=== PATIENT | female | born 1990 | race Caucasian/White ===

== ENCOUNTER → 2022-09-16 15:25 | Outpatient (BNVA) | payer BC, SELFPAY | PROVIDERS: Family Provider Family Medicine; PCP Family Medicine; Referring Provider Family Medicine; Visit Provider Student in an Organized Health Care Education/Training Program | DX: G56.01 Carpal tunnel syndrome, right upper limb (principal); Z98.51 Tubal ligation status | CPT/HCPCS: 73130 ==

== ENCOUNTER 2022-10-11 06:13 | Day surgery (SDC) | payer BC, MEDICAID, SELFPAY ==
[2022-10-08 14:01] VITALS: BMI 31.4
[2022-10-11] VITALS (7 sets, daily range): BP systolic 86–97; BP diastolic 47–63; PULSE 55–63; RESP 12–18; TEMP 36.1–36.7; O2SAT 99–100
[2022-10-11] MEDS: sodium chloride 0.9% 1,000 ML 30 ML IV (06:43)
[2022-10-11] MEDS: ketorolac 30 mg/mL INJ IVP (06:47)
[2022-10-11] MEDS: acetaminophen 1,000 MG/100 ML PIGGYBACK 400 MG IV (06:47)
[2022-10-11 06:53] LABS: OR HCG Qualitative Urine Negative (Negative)
--- NOTE | 2022-10-11 06:54 | W.PM.OPSUD ---
Surgery/Procedure H&P Update DATE OF PROCEDURE: October 11, 2022 DATE H&P PERFORMED: 09/16/22 CHANGES TO PREVIOUS DOCUMENTATION: None. No change in HPI visit from 09/16/2022. Patient continues to have right carpal tunnel syndrome. She understands risk benefits complication alternatives of surgery elects proceed with surgical intervention all questions answered at this time. She did bring her previous nerve conduction study from an outside facility which demonstrated carpal tunnel syndrome on her nerve study to the right upper extremity PREOP DIAGNOSIS: Right Carpal Tunnel syndrome PRIMARY INDICATION FOR PROCEDURE: Right carpal tunnel syndrome PLANNED PROCEDURE: Operation Date: 10/11/22 08:05 Proposed Procedures p RIGHT CARPAL TUNNEL RELEASE 07400, G56.00,M79.641(Right) - John Corona DO
--- NOTE | 2022-10-11 07:36 | ANES.PREANE2 ---
Pre-Anesthetic Assessment Height/Weight: Height 1.63 m Weight 83.007 kg Temp Resp O2 Del Method 98.1 F 16 Room Air 10/11/22 06:30 10/11/22 06:30 10/11/22 06:30 Preop Diagnosis: Right Carpal Tunnel syndrome Operation Date: 10/11/22 08:05 Proposed Procedures p RIGHT CARPAL TUNNEL RELEASE 16385, G56.00,M79.641(Right) - John Corona DO Familial anesthetic complications: None Was Beta Kin taken within 24 hours: N/A Was Clonidine taken within 24 hours: N/A Last intake: Intake Last Liquid Date 10/10/22 Last Liquid Time 21:00 Last Solid Date 10/10/22 Last Solid Time 18:30 Social Tobacco and No alcohol 1 pack(s) per day Hx meth use Exam alert, oriented x 3, clear to auscultation bilaterally and regular rate & rhythm Airway Submandibular: within normal limits Cervical ROM: within normal limits Mallampati: Class II Dentition: full History/ROS No significant history except as noted and No significant complaints Pulmonary None reported CV/HEM None reported None reported Hepatic None reported GI None reported Metabolic None reported Musc/skel None reported Neuropsych Anxiety, Depression and Seizure (A few years ago, met with neurologist but no interventions. ) Anesthetic Plan ASA status: 2 Anesthesia: Anesthesia Evaluation, General and MAC Risk of > 500 ml blood loss (7ml/kg in children): No Medications/Allergies Home Medications Medication Instructions Recorded Confirmed Last Taken Type baclofen 5 mg tablet 10 mg PO BID 09/07/22 10/11/22 10/10/22 History buspirone 5 mg tablet 15 mg PO BID 09/07/22 10/11/22 10/10/22 History fluoxetine 10 mg capsule (Prozac) 20 mg PO DAILY #30 caps 09/07/22 10/11/22 10/10/22 Rx hydrocodone 5 mg-acetaminophen 325 1 tab PO Q6H PRN pain 5 days #20 10/11/22 Unknown Rx mg tablet tabs ondansetron 4 mg disintegrating 4 mg PO DAILY PRN nausea and 10/11/22 Unknown Rx tablet vomiting 3 days #9 tabs Allergies Allergy/AdvReac Type Severity Reaction Status Date / Time phentermine AdvReac racing Verified 10/08/22 14:04 heart rate Current Medications Generic Name Dose Route Start Last Admin Trade Name Freq PRN Reason Stop Dose Admin Sodium Chloride 1,000 mls @ 30 mls/hr 10/11/22 06:30 10/11/22 06:43 Sodium Chloride 0.9% IV 10/12/22 06:29 30 mls/hr .Q24H KADE Administration PFSH Anesthesia Medical History Psychiatric care Social History (Updated 09/16/22 @ 14:37 by Nadine Hill LPN) Smoking and tobacco status: current every day smoker Alcohol intake: never Female Reproductive History Date of last menstrual period: 09/26/22 Data Anesthesia Cardiac Studies: No Data to Display
[2022-10-11] MEDS: ceFAZolin 2,000 MG in sodium chloride 0.9% (plus) 50 ML 100 MG IV (07:58)
[2022-10-11] MEDS: lidocaine-epi 1% 20 mL INJ INJECTION (08:15)
[2022-10-11] MEDS: ROPivacaine 0.5% SDV 30 mL 150 MG INJECTION (08:15)
--- NOTE | 2022-10-11 08:42 | PM.OP2 ---
Brief Operative Note Date of procedure: 10/11/22 Pre-op diagnosis: Right carpal tunnel syndrome Post-op diagnosis: same Procedure Done: Right carpal tunnel release Surgeon: John Corona Estimated blood loss (mL): 3 Complications: None Post-op Plan: Patient taken to PACU in stable condition recovering well. Pain controlled. Will receive appropriate discharge instructions as well as pain medication postoperatively. We will follow-up in the orthopedic office in 2 weeks. Condition: stable Disposition: same day Coding Level of Care Code Acute Code for Saravanan Hernandez
--- NOTE | 2022-10-11 08:43 | P.OP_ITS ---
Operative Report Date of procedure: October 11, 2022 Pre-op diagnosis: Preop Diagnosis Right Carpal Tunnel syndrome Technology Resource Teacher: Candido Corona PA-C, PA-C was necessary for assistance in this case with appropriate skin and soft tissue retraction as well as protection of neurovascular structures as well as for assistance with closure. Procedure: Post-op diagnosis: Same Procedure done: 1. Right carpal tunnel release Surgeon: John Corona DO Anesthesia: MAC (Local) Estimated blood loss: [3?]mL Tourniquet time [ 7]minutes IV fluids: See anesthesia record Complications: None Findings: See operative report narrative Condition: stable Disposition: same day Brief History: Patient is a pleasant [?32 ]year-old [female] with right carpal tunnel syndrome.? Patient has been worked up in the outpatient setting findings and physical examination consistent with this.? Patient nerve conduction studies consistent with carpal tunnel syndrome.? We detailed out patient's risk benefits complication alternatives with surgical and nonsurgical treatment options. Through shared decision making, patient agrees to proceed with surgical intervention of the right carpal tunnel release .? Patient understands and agrees with current plan.? All questions answered.? Procedure: Patient seen and evaluated in the preoperative holding area.? Consent was reviewed and signed with patient.? Correct extremity was marked.? Patient was seen evaluated by the anesthesia department once cleared for surgery was brought back to the operative suite.? Patient was kept on [facility] in supine position all bony prominences were well-padded patient properly secured to the bed.? Right upper extremity was then placed onto an armboard.? A nonsterile tourniquet was applied to the RIght upper arm.? Patient underwent anesthesia per the anesthesia department.? Patient's Right upper extremity was then prepped and draped in standard orthopedic fashion.? Final timeout performed.? Patient received appropriate preoperative antibiotics. Under sterile aseptic technique patient received local anesthesia over the preplanned carpal tunnel incision site. Esmarch was used to exsanguinate the Right upper extremity and tourniquet was insufflated to 250 mmHg. A standard mini open Right carpal tunnel incision was made.? Starting distally at Thrasher's cardinal line in line with the fourth ray extending proximally distal to the wrist crease centered over the carpal tunnel.? Sharp scalpel incision was made through skin and subcutaneous tissue.? Self-retaining retractor was placed and the palmar fascia was identified.? This was then split longitudinally and direct visualization of the transverse carpal ligament was then made.? I then utilizing scalpel feathered through the transverse carpal ligament until I entered the floor of the transverse carpal tunnel ligament into the carpal tunnel.? Next I switched to dissection scissors and completed my release of the transverse carpal ligament distally with care to protect the recurrent motor branch.? I completely released into the palmar fat and until no entrapment was noted distally.? Care was made to protect the superficial palmar arch during my distal dissection.?? Next I utilized a nasal speculum placed on top of the transverse carpal ligament and utilize this to retract the subcutaneous fat and tissue and under direct loupe magnification was able to identify the transverse carpal ligament.? Next I then placed a [place] underneath the transverse carpal tunnel ligament to protect the contents of the carpal tunnel and subsequently utilizing dissection scissors under loupe magnification completely released the transverse carpal ligament proximally into the median antebrachial fascia.? Care was made to protect the palmar cutaneous branch by keeping my scissors curved ulnarly.? Once completely released, I then placed my [place] and had appropriate decompression of the carpal tunnel proximally as well as distally.? I then inspected the contents of the carpal tunnel which showed an hourglass shape of the median nerve showing its compression.? No masses were noted.? Tendons appeared healthy.? Wound was then thoroughly irrigated.? Tourniquet deflated.? Hemostasis satisfactory with bipolar electrocautery.? I then closed the incision with interrupted nylon stitches.? Xeroform 4 x 4's and a bulky soft dressing was applied.? Patient was then awakened from anesthesia and taken to PACU in stable condition.? Patient tolerated procedure without complications. Disposition: Patient taken to PACU in stable condition recovering well.? Dressing clean dry and intact.? Patient will receive appropriate discharge instructions as well as pain medication postoperatively.? Patient to follow-up with me in the office in 2 weeks.? They understand they may be weightbearing as tolerated to the right hand.? Patient should keep incision clean dry and intact.? Patient understands if any questions or concerns may contact the office.
--- NOTE | 2022-10-11 08:43 | PM.PACU ---
PACU note Narrative: Patient taken to PACU in stable condition dressing on in place clean dry intact of the right hand. Fingertips warm well-perfused brisk capillary refill less than 2 seconds. Patient is able to wiggle fingers decree sensation secondary to local anesthesia and median nerve paresthesias at baseline. Exam: awake Disposition: discharged
--- NOTE | 2022-10-11 16:58 | ANE.PACU2 ---
Inpatient post-anesthesia follow up: Airway intact: Yes Vital signs: Temperature 97.0 F Pulse Rate 56 Respiratory Rate 16 Blood Pressure 97/63 Pulse Oximetry 99 Oxygen Delivery Me thod Room Air Oxygen Flow Rate 5 Fraction of Inspir ed Oxygen Hydration adequate: Yes Nausea and vomiting: No Pain level: 2 Mental status: Baseline
== END 2022-10-11 09:40 | disposition home or self-care (01) ==
PROVIDERS: Anesthesiology; PCP Family Medicine; Visit Provider Student in an Organized Health Care Education/Training Program
PROC: (CPT 64721; principal; 2022-10-11 07:55)
DX: G56.01 Carpal tunnel syndrome, right upper limb (principal); F17.210 Nicotine dependence, cigarettes, uncomplicated; Z79.899 Other long term (current) drug therapy
CPT/HCPCS: 64721; 81025; 84703; J0131; J0690; J1885; J2371; J2704; J2795; J3010; J7030

== ENCOUNTER 2023-07-16 18:15 | Emergency (ER) | payer OTHER, SELFPAY ==
[2023-07-16] VITALS (7 sets, daily range): BP systolic 108–126; BP diastolic 69–81; PULSE 59–72; RESP 18–28; TEMP 36.8; O2SAT 79–100; BMI 33.3
--- NOTE | 2023-07-16 18:47 | USR_ITS ---
PROCEDURE INFORMATION: Exam: US Duplex Artery and Vein of the Abdominal and/or Reproductive Organs. Complete Ovaries Exam date and time: 07/16/2023 7:06 PM Age: 32 years old Clinical indication: Pelvic pain; Additional info: Pelvic pain, HX of fibroids TECHNIQUE: Imaging protocol: Real-time duplex ultrasound scan of the arterial and venous flow with color Doppler flow and spectral waveform analysis with image documentation. Duplex exam was performed to evaluate for torsion and other vascular conditions. COMPARISON: US transvaginal [id number] 05/31/2023 11:24 AM FINDINGS: Right ovary/adnexa: Normal color Doppler and arterial and venous spectral Doppler blood flow is demonstrated Left ovary/adnexa: Normal color Doppler and arterial and venous spectral Doppler blood flow is demonstrated PROCEDURE INFORMATION: Exam: US Pelvis, Transvaginal Exam date and time: 07/16/2023 7:06 PM Age: 32 years old Clinical indication: Pelvic pain; Additional info: Pelvic pain, HX of fibroids TECHNIQUE: Imaging protocol: Real-time transvaginal pelvic ultrasound with image documentation. Transvaginal imaging was used for better evaluation of the endometrium, adnexa, and/or cervix. COMPARISON: US transvaginal [id number] 05/31/2023 11:24 AM FINDINGS: Uterus: Large complex appearing lesion within the uterus, measures approximately 3.5 x 3.9 cm, near/obscuring the endometrial stripe, new from prior, with heterogeneous internal fluid levels. Right ovary/adnexa: No evidence of mass. Normal ovarian blood flow. Left ovary/adnexa: No evidence of mass. Normal ovarian blood flow. Intraperitoneal space: Small volume free fluid in the posterior cul-de-sac. US/US transvaginal [id number] IMPRESSION: No sonographic evidence of acute ovarian torsion. IMPRESSION: Large complex appearing lesion within the uterus, near/obscuring the endometrial stripe, new from prior, with heterogeneous internal fluid levels. 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 This could be further evaluated with MRI pelvis with and without IV contrast.
--- NOTE | 2023-07-16 19:43 | ED_ITS ---
Documented by User: [email or web address] Cox 07/16/23 22:00 HPI - Female Genitourinary 2 General: Chief complaint: Urogenital-Female Stated complaint: ABD pain Time Seen by Provider: 07/16/23 18:47 Source: patient Mode of arrival: ambulatory Limitations: no limitations History of Present Illness: Patient is a 32-year-old female presenting to the emergency department complaining of right-sided pelvic pain onset today. Patient has a history of fibroids and recently had ultrasound in May that revealed this. She does note significant worsening of pain today, and the pain is so severe that it is causing radiation and numbness down her right leg. She denies any vaginal bleeding, but does note some pinkish infrequent spotting that does not appear to be blood. She does have a hysterectomy scheduled for October. Reporting nausea at this time. She does have history of tubal ligation. Pain currently rated at a 10/10, and she is breathing rapidly in the emergency room. She request something for pain and nausea at this time. Denies possibility of . No urinary symptoms. Patient still does have her appendix. MD elicited complaint: pelvic pain Pertinent past history: other (Fibroids, tubal ligation) Onset (ago): hour(s) Severity: severe Severity scale (1-10): 10 Quality of pain: sharp Consistency: constant Associated symptoms: Reports nausea; Deny abdominal pain or headache(s) Review of Systems 2 General: Reports: 10 or more systems reviewed and unremarkable except in HPI and below Const: Denies: fever(s), chills, change in appetite, change in weight or diaphoresis ENMT: Denies: throat pain or hoarseness Card: Denies: chest pain, palpitations or lightheadedness Resp: Denies: dyspnea, productive cough or wheezing GI: Reports: nausea; Denies: abdominal pain, vomiting, diarrhea, constipation, bloating, change in stool character or hematochezia : Reports: pelvic pain; Denies: flank pain, difficulty voiding, dysuria, urinary frequency or urinary urgency Musc: Reports: extremity pain; Denies: neck pain or back pain Skin/Breast: Denies: rash or new lesions Neuro: Reports: numbness in extremities; Denies: headache(s) or dizziness PFS ED 2 PFSH: Medical History Psychiatric care Surgical History History of endometrial ablation (~2021) Family History Father Stroke Denies family history of Colon cancer Ovarian cancer Prostate cancer Diabetes Heart disease Hyperlipidemia Breast cancer Hypertension Uterine cancer Thyroid disease Physical Exam 2 Const: COMMON NORMALS: average body habitus, patient oriented x3, no limitations, healthy appearing, alert and well nourished GENERAL APPEARANCE: cooperative and in distress (from pain) ORIENTATION/CONSCIOUSNESS: Yes awake OTHER: She appears to be in moderate amount of pain HENMT: COMMON NORMALS: normocephalic, atraumatic, hearing grossly normal bilaterally, external ears normal, Normal external nose present, Normal nasal mucous membranes and turbinates present and moist oral mucous membranes HEAD & SCALP: normocephalic and atraumatic NOSE: Normal external nose present and Normal nasal mucous membranes and turbinates present EXTERNAL EAR: Yes external ears normal Eye: COMMON NORMALS: Equal, round and reactive pupils present, EOMs intact bilaterally, conjunctivae normal and normal visual tan by confrontation C ONJUNCTIVA: Yes conjunctivae normal PUPIL: Yes Equal, round and reactive pupils present Neck/C-Spine: COMMON NORMALS: full ROM, supple, no meningeal signs and no JVD Resp: COMMON NORMALS: No retractions, No use of accessory muscles and clear to auscultation bilaterally EFFORT & INSPECTION: Yes tachypneic AUSCULTATION: clear to auscultation bilaterally, no crackles, no rales, no rhonchi and no wheezes Cardio: COMMON NORMALS: no JVD, regular rate, regular rhythm, S1 normal heart sound present, S2 normal heart sound present, No gallops present (Cardio), No clicks present (Cardio), No murmurs present (Cardio), No rub (Cardio) and Peripheral pulses 2+ throughout RATE: regular rate RHYTHM: regular rhythm HEART SOUNDS: S1 normal heart sound present and S2 normal heart sound present PERIPHERAL PULSES: Peripheral pulses 2+ throughout GI: COMMON NORMALS: Normal to inspection, nondistended, normoactive bowel sounds present, Soft to palpation, No hepatosplenomegaly present and no masses AUSCULTATION: Yes normoactive bowel sounds PALPATION: Yes Soft to palpation, Yes Tenderness to palpation present (GI) (She is moderately tender to the right suprapubic region), No Guarding due to palpation present (GI), No Rigid due to palpation and Yes No hepatosplenomegaly present RECTAL EXAM: deferred : COMMON NORMALS: Yes no CVA tenderness BLADDER/KIDNEY EXAM: Yes no CVA tenderness Back/Pelvis: COMMON NORMALS: no CVA tenderness Extremity: COMMON NORMALS: normal to inspection and full ROM Neuro: COMMON NORMALS: patient oriented x3, moves all extremities, no focal motor deficits and no sensory deficits noted SENSORIUM/ORIENTATION: Yes alert MENINGEAL SIGNS: Yes no meningeal signs Psych: COMMON NORMALS: mental status grossly normal, cooperative and speech normal SPEECH: Yes normal speech Skin: COMMON NORMALS: no rashes or lesions noted GENERAL SKIN EXAM: no rashes or lesions noted Course 2 Vital Signs: Vital signs: Vital Signs Temperature 98.2 F 07/16/23 18:21 Pulse Rate 59 L 07/16/23 22:20 Respiratory Rate 18 07/16/23 20:59 Blood Pressure 108/77 07/16/23 22:20 Pulse Oximetry 100 07/16/23 22:20 Oxygen Delivery Me thod Nasal Cannula 07/16/23 21:14 Oxygen Flow Rate 2 07/16/23 21:14 MDM - Female Medical Decision Making Patient seen for acute onset of right pelvic pain. History of fibroids. Hysterectomy scheduled for October. On arrival patient was tachypneic and complaining of severe pain. Pain controlled after 2 doses of IV morphine and 2 doses of nausea medications. Lab work revealed elevated white count with a left shift, however the rest of labs unremarkable. Transvaginal ultrasound revealed that a previous fibroid from ultrasound in May, was now a large complex lesion that gave the periods of degenerative fibroid. I spoke with on-call HEALTH INFORMATION CLERK, Dr. Mina, and informed him of patient's case and current findings. He states that patient can be sent home with adequate pain control and that her prognosis is good, with pain usually improving in the next few days. She is to keep her hysterectomy schedule as usual, as this is not needed to be expedited at this point. Informed patient of this, who is now stating her pain and nausea have improved. Will send her home with hydrocodone to take for breakthrough pain, as well as nausea medications. Reasons to return are thoroughly discussed, and patient agrees with discharge home. Lab Data I reviewed the patient's lab results. 07/16/23 19:58 07/16/23 19:58 Radiology Impressions Transvaginal US 07/16/23 18:47 IMPRESSION: No sonographic evidence of acute ovarian torsion. IMPRESSION: Large complex appearing lesion within the uterus, near/obscuring the endometrial stripe, new from prior, with heterogeneous internal fluid levels. 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 This could be further evaluated with MRI pelvis with and without IV contrast. Laboratory Results WBC 14.64 10^3/uL (3.29-11.43) H 07/16/23 19:58 RBC 5.08 10^6/uL (3.85-5.65) 07/16/23 19:58 Hgb 14.40 g/dL (11.27-16.99) 07/16/23 19:58 Hct 44.0 % (36-47) 07/16/23 19:58 MCV 86.6 fl (85-98) 07/16/23 19:58 MCH 28.3 pg (27-33) 07/16/23 19:58 MCHC 32.7 g/dL (30-55) 07/16/23 19:58 RDW 12.3 % (12.1-15.1) 07/16/23 19:58 Plt Count 383 10^3/cmm (157-399) 07/16/23 19:58 MPV 10.1 fL (7.4-10.4) 07/16/23 19:58 Neut % (Auto) 80.2 % 07/16/23 19:58 Lymph % (Auto) 13.0 % 07/16/23 19:58 [place] % (Auto) 5.0 % 07/16/23 19:58 Eos % (Auto) 1.0 % 07/16/23 19:58 Baso % (Auto) 0.5 % 07/16/23 19:58 Neut # (Auto) 11.74 10^3/uL (1.8-7.7) H 07/16/23 19:58 Lymph # (Auto) 1.9 10^3/uL (0.8-4.8) 07/16/23 19:58 [place] # (Auto) 0.7 10^3/uL (0.2-0.9) 07/16/23 19:58 Eos # (Auto) 0.2 10^3/uL (0.0-0.8) 07/16/23 19:58 Baso # (Auto) 0.1 10^3/uL (0.0-0.1) 07/16/23 19:58 Nucleated RBC % (auto) 0 % 07/16/23 19:58 Nucleated RBCs # 0.0 /100WBC 07/16/23 19:58 ESR 18 mm/hr (0-15) H 07/16/23 19:58 Sodium 139 mmol/L (136-145) 07/16/23 19:58 Potassium 3.1 mmol/L (3.5-5.1) L 07/16/23 19:58 Chloride 104 mmol/L (98-107) 07/16/23 19:58 Carbon Dioxide 21 mmol/L (22-29) L 07/16/23 19:58 Anion Gap 17.1 (5-19) 07/16/23 19:58 BUN 15 mg/dL (6-20) 07/16/23 19:58 Creatinine 0.6 mg/dL (0.5-0.9) 07/16/23 19:58 GFR Calculation 114.4 mL/min (90-130) 07/16/23 19:58 Glucose 92 mg/dL (65-115) 07/16/23 19:58 Calculated Osmolality 288 mOsm/kg (285-295) 07/16/23 19:58 Calcium 9.1 mg/dL (8.5-10.5) 07/16/23 19:58 Total Bilirubin 0.2 mg/dL (0.15-1.2) 07/16/23 19:58 AST 20 U/L (0-32) 07/16/23 19:58 ALT 14 U/L (0-33) 07/16/23 19:58 Alkaline Phosphatase 111 U/L (35-105) H 07/16/23 19:58 C-Reactive Protein 5.4 mg/L (0.0-4.9) H 07/16/23 19:58 Total Protein 8.6 g/dL (6.6-8.7) 07/16/23 19:58 Albumin 4.4 g/dL (3.5-5.2) 07/16/23 19:58 Globulin 4.2 g/dL (1.3-4.6) 07/16/23 19:58 Lipase 46 U/L (13-60) 07/16/23 19:58 HCG, Qual Negative (Negative) 07/16/23 21:30 Urine Color Yellow (Yellow) 07/16/23 21:30 Urine Appearance Cloudy (CLEAR) A 07/16/23 21:30 Urine pH 9 (5-7) H 07/16/23 21:30 Ur Specific [place] 1.010 (1.005-1.030) 07/16/23 21:30 Urine Protein 1+ (Negative) H 07/16/23 21:30 Urine Glucose (UA) Norm (Normal) 07/16/23 21:30 Urine Ketones 1+ (Negative) H 07/16/23 21:30 Urine Blood Neg (Negative) 07/16/23 21:30 Urine Nitrate Negative (Negative) 07/16/23 21:30 Urine Bilirubin Neg (Negative) 07/16/23 21:30 Urine Urobilinogen 1 mg/dL (Negative) H 07/16/23 21:30 Ur Leukocyte Esterase Negative (Negative) 07/16/23 21:30 Urine RBC 0-4 /hpf (0-2) H 07/16/23 21:30 Urine WBC 5-10 /hpf (0-5) H 07/16/23 21:30 Ur Squamous Epith Cells 5-10 /hpf (0-5) H 07/16/23 21:30 Amorphous Sediment Trace /hpf 07/16/23 21:30 Urine Bacteria 1+ /hpf (NONE) H 07/16/23 21:30 Urine Mucus 2+ /hpf 07/16/23 21:30 All radiology interpretation(s) finalized by discharge Discharge Plan Discharge Patient Disposition: Home Clinical Impression: Uterine fibroid Qualifiers: Uterine leiomyoma location: unspecified location Qualified Code(s): D25.9 - Leiomyoma of uterus, unspecified Condition: Stable Prescriptions: New hydrocodone-acetaminophen 7.5-325 mg tablet 1 tab PO Q8H PRN (Reason: pain) Qty: 20 0RF ondansetron HCl 4 mg tablet 4 mg PO Q8H Qty: 30 0RF No Action buspirone 15 mg tablet 15 mg PO BID Qty: 60 2RF fluoxetine 40 mg capsule 40 mg PO DAILY Qty: 30 2RF hydroxyzine HCl 50 mg tablet 100 mg PO .HS PRN (Reason: insomnia) Qty: 60 2RF Discharge Orders: Discharge ED (Routine); Ordered 07/16/23 Ordered By: Jose Enrique Mcclellan Referrals: Elías Aragon MD [Primary Care Provider] - Discharge Diet: Advance as tolerated Discharge Activity: Increase activity as tolerated Patient Instructions: Uterine Fibroids (ED) Activity Restrictions/Additional Instructions: Pain medications as prescribed. Nausea medication. Plenty of fluids. Follow- up with your primary care provider. Return with any new or concerning symptoms. Stand Alone Forms: Work/School Release Coding Level of Care Code ED Lead Burner for Chg Fwd Documented by User: Fly Mallory DO 07/17/23 07:00 HPI - Female Genitourinary 2 General: Chief complaint: Urogenital-Female Stated complaint: ABD pain Time Seen by Provider: 07/16/23 18:47 PFSH ED 2 PFSH: Medical History Psychiatric care Surgical History History of endometrial ablation (~2021) Family History Father Stroke Denies family history of Colon cancer Ovarian cancer Prostate cancer Diabetes Heart disease Hyperlipidemia Breast cancer Hypertension Uterine cancer Thyroid disease Course 2 Vital Signs: Vital signs: Vital Signs Temperature 98.2 F 07/16/23 18:21 Pulse Rate 59 L 07/16/23 22:20 Respiratory Rate 18 07/16/23 20:59 Blood Pressure 108/77 07/16/23 22:20 Pulse Oximetry 100 07/16/23 22:20 Oxygen Delivery Me thod Nasal Cannula 07/16/23 21:14 Oxygen Flow Rate 2 07/16/23 21:14 MDM - Female Medical Decision Making Patient seen for acute onset of right pelvic pain. History of fibroids. Hysterectomy scheduled for October. On arrival patient was tachypneic and complaining of severe pain. Pain controlled after 2 doses of IV morphine and 2 doses of nausea medications. Lab work revealed elevated white count with a left shift, however the rest of labs unremarkable. Transvaginal ultrasound revealed that a previous fibroid from ultrasound in May, was now a large complex lesion that gave the periods of degenerative fibroid. I spoke with on-call HEALTH INFORMATION CLERK, Dr. Mina, and informed him of patient's case and current findings. He states that patient can be sent home with adequate pain control and that her prognosis is good, with pain usually improving in the next few days. She is to keep her hysterectomy schedule as usual, as this is not needed to be expedited at this point. Informed patient of this, who is now stating her pain and nausea have improved. Will send her home with hydrocodone to take for breakthrough pain, as well as nausea medications. Reasons to return are thoroughly discussed, and patient agrees with discharge home. Chart reviewed Lab Data 07/16/23 19:58 07/16/23 19:58 Radiology Impressions Transvaginal US 07/16/23 18:47 IMPRESSION: No sonographic evidence of acute ovarian torsion. IMPRESSION: Large complex appearing lesion within the uterus, near/obscuring the endometrial stripe, new from prior, with heterogeneous internal fluid levels. 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 This could be further evaluated with MRI pelvis with and without IV contrast. Laboratory Results WBC 14.64 10^3/uL (3.29-11.43) H 07/16/23 19:58 RBC 5.08 10^6/uL (3.85-5.65) 07/16/23 19:58 Hgb 14.40 g/dL (11.27-16.99) 07/16/23 19:58 Hct 44.0 % (36-47) 07/16/23 19:58 MCV 86.6 fl (85-98) 07/16/23 19:58 MCH 28.3 pg (27-33) 07/16/23 19:58 MCHC 32.7 g/dL (30-55) 07/16/23 19:58 RDW 12.3 % (12.1-15.1) 07/16/23 19:58 Plt Count 383 10^3/cmm (157-399) 07/16/23 19:58 MPV 10.1 fL (7.4-10.4) 07/16/23 19:58 Neut % (Auto) 80.2 % 07/16/23 19:58 Lymph % (Auto) 13.0 % 07/16/23 19:58 [place] % (Auto) 5.0 % 07/16/23 19:58 Eos % (Auto) 1.0 % 07/16/23 19:58 Baso % (Auto) 0.5 % 07/16/23 19:58 Neut # (Auto) 11.74 10^3/uL (1.8-7.7) H 07/16/23 19:58 Lymph # (Auto) 1.9 10^3/uL (0.8-4.8) 07/16/23 19:58 [place] # (Auto) 0.7 10^3/uL (0.2-0.9) 07/16/23 19:58 Eos # (Auto) 0.2 10^3/uL (0.0-0.8) 07/16/23 19:58 Baso # (Auto) 0.1 10^3/uL (0.0-0.1) 07/16/23 19:58 Nucleated RBC % (auto) 0 % 07/16/23 19:58 Nucleated RBCs # 0.0 /100WBC 07/16/23 19:58 ESR 18 mm/hr (0-15) H 07/16/23 19:58 Sodium 139 mmol/L (136-145) 07/16/23 19:58 Potassium 3.1 mmol/L (3.5-5.1) L 07/16/23 19:58 Chloride 104 mmol/L (98-107) 07/16/23 19:58 Carbon Dioxide 21 mmol/L (22-29) L 07/16/23 19:58 Anion Gap 17.1 (5-19) 07/16/23 19:58 BUN 15 mg/dL (6-20) 07/16/23 19:58 Creatinine 0.6 mg/dL (0.5-0.9) 07/16/23 19:58 GFR Calculation 114.4 mL/min (90-130) 07/16/23 19:58 Glucose 92 mg/dL (65-115) 07/16/23 19:58 Calculated Osmolality 288 mOsm/kg (285-295) 07/16/23 19:58 Calcium 9.1 mg/dL (8.5-10.5) 07/16/23 19:58 Total Bilirubin 0.2 mg/dL (0.15-1.2) 07/16/23 19:58 AST 20 U/L (0-32) 07/16/23 19:58 ALT 14 U/L (0-33) 07/16/23 19:58 Alkaline Phosphatase 111 U/L (35-105) H 07/16/23 19:58 C-Reactive Protein 5.4 mg/L (0.0-4.9) H 07/16/23 19:58 Total Protein 8.6 g/dL (6.6-8.7) 07/16/23 19:58 Albumin 4.4 g/dL (3.5-5.2) 07/16/23 19:58 Globulin 4.2 g/dL (1.3-4.6) 07/16/23 19:58 Lipase 46 U/L (13-60) 07/16/23 19:58 HCG, Qual Negative (Negative) 07/16/23 21:30 Urine Color Yellow (Yellow) 07/16/23 21:30 Urine Appearance Cloudy (CLEAR) A 07/16/23 21:30 Urine pH 9 (5-7) H 07/16/23 21:30 Ur Specific [place] 1.010 (1.005-1.030) 07/16/23 21:30 Urine Protein 1+ (Negative) H 07/16/23 21:30 Urine Glucose (UA) Norm (Normal) 07/16/23 21:30 Urine Ketones 1+ (Negative) H 07/16/23 21:30 Urine Blood Neg (Negative) 07/16/23 21:30 Urine Nitrate Negative (Negative) 07/16/23 21:30 Urine Bilirubin Neg (Negative) 07/16/23 21:30 Urine Urobilinogen 1 mg/dL (Negative) H 07/16/23 21:30 Ur Leukocyte Esterase Negative (Negative) 07/16/23 21:30 Urine RBC 0-4 /hpf (0-2) H 07/16/23 21:30 Urine WBC 5-10 /hpf (0-5) H 07/16/23 21:30 Ur Squamous Epith Cells 5-10 /hpf (0-5) H 07/16/23 21:30 Amorphous Sediment Trace /hpf 07/16/23 21:30 Urine Bacteria 1+ /hpf (NONE) H 07/16/23 21:30 Urine Mucus 2+ /hpf 07/16/23 21:30 Discharge Plan Discharge Patient Disposition: Home Clinical Impression: Uterine fibroid Qualifiers: Uterine leiomyoma location: unspecified location Qualified Code(s): D25.9 - Leiomyoma of uterus, unspecified Condition: Stable Prescriptions: New hydrocodone-acetaminophen 7.5-325 mg tablet 1 tab PO Q8H PRN (Reason: pain) Qty: 20 0RF ondansetron HCl 4 mg tablet 4 mg PO Q8H Qty: 30 0RF No Action buspirone 15 mg tablet 15 mg PO BID Qty: 60 2RF fluoxetine 40 mg capsule 40 mg PO DAILY Qty: 30 2RF hydroxyzine HCl 50 mg tablet 100 mg PO .HS PRN (Reason: insomnia) Qty: 60 2RF Discharge Orders: Discharge ED (Routine); Ordered 07/16/23 Ordered By: Jose Enrique Mcclellan Referrals: Elías Aragon MD [Primary Care Provider] - Discharge Diet: Advance as tolerated Discharge Activity: Increase activity as tolerated Patient Instructions: Uterine Fibroids (ED) Activity Restrictions/Additional Instructions: Pain medications as prescribed. Nausea medication. Plenty of fluids. Follow- up with your primary care provider. Return with any new or concerning symptoms. Stand Alone Forms: Work/School Release Coding Level of Care Code ED Lead Burner for Saravanan Hernandez
[2023-07-16] MEDS: metoclopramide 5 mg/mL SDV 2 mL 10 MG IVP (19:45)
[2023-07-16] MEDS: morphine 4 mg/mL SDV 1 mL IVP ×2 (19:45→20:59)
[2023-07-16 20:04] LABS: Erythrocyte Sedimentation Rate 18 mm/hr (0-15)
[2023-07-16 20:08] LABS: Basophils # 0.1 10^3/uL (0.0-0.1); Basophils % 0.5 %; Eosinophils # 0.2 10^3/uL (0.0-0.8); Lymphocytes # 1.9 10^3/uL (0.8-4.8); Mean Corpuscular HGB Conc 32.7 g/dL (30-55); Mean Corpuscular Hemoglobin 28.3 pg (27-33); Mean Corpuscular Volume 86.6 fl (85-98); Mean Platelet Volume 10.1 fL (7.4-10.4); Monocytes # 0.7 10^3/uL (0.2-0.9); Neutrophils # 11.74 10^3/uL (1.8-7.7); Neutrophils % 80.2 %; Nucleated Red Blood Cells % 0 %; Platelet Count 383 10^3/cmm (157-399); Red Blood Count 5.08 10^6/uL (3.85-5.65); Red Cell Distribution Width 12.3 % (12.1-15.1); White Blood Count 14.64 10^3/uL (3.29-11.43)
[2023-07-16 20:28] LABS: Alanine Aminotransferase 14 U/L (0-33); Albumin Level 4.4 g/dL (3.5-5.2); Alkaline Phosphatase 111 U/L (35-105); Anion Gap 17.1 (5-19); Aspartate Amino Transferase 20 U/L (0-32); Blood Urea Nitrogen 15 mg/dL (6-20); C Reactive Protein 5.4 mg/L (0.0-4.9); Calcium 9.1 mg/dL (8.5-10.5); Carbon Dioxide 21 mmol/L (22-29); Chloride 104 mmol/L (98-107); Creatinine Clr Calc Pharmacy 141.8633; Globulin 4.2 g/dL (1.3-4.6); Glomerular Filtration Rate 114.4 mL/min (90-130); Glucose 92 mg/dL (65-115); Lipase 46 U/L (13-60); Osmolality Calculated 288 mOsm/kg (285-295); Potassium 3.1 mmol/L (3.5-5.1); Sodium 139 mmol/L (136-145); Total Bilirubin 0.2 mg/dL (0.15-1.2); Total Protein 8.6 g/dL (6.6-8.7)
[2023-07-16] MEDS: ondansetron 2 mg/ML SDV 2 mL 4 MG IVP (20:59)
[2023-07-16 21:55] LABS: Add Urine Microscopic? YES; Bacteria Urine 1+ /hpf; Bilirubin Urine Neg (Negative); Blood Urine Neg (Negative); Glucose Urine UA Norm (Normal); Ketones Urine 1+ (Negative); Leukocyte Esterase Urine Negative (Negative); Mucus Urine 2+ /hpf; Nitrate Urine Negative (Negative); Protein Urine 1+ (Negative); RBC Urine 0-4 /hpf (0-2); Urine Appearance Cloudy (CLEAR); Urine Color Yellow (Yellow); Urobilinogen Urine 1 mg/dL (Negative); pH Urine 9 (5-7)
[2023-07-16 21:56] LABS: Amorphous Sediment Urine TRACE /hpf; HCG Qualitative Urine. Negative (Negative)
[2023-07-16] MEDS: HYDROcodone-acetaminophen 7.5-325 mg Tablet 1 TAB PO (22:05)
--- NOTE | 2023-07-16 22:21 | PC.NURSE ---
Patient was sent home with 1 tablet of hydrocodone, witnessed by Stella ALVARADO. Patient was educated to take as directed.
== END 2023-07-16 22:22 | disposition home or self-care (01) ==
PROVIDERS: Emergency Provider Physician Assistant; PCP Family Medicine
DX: D25.9 Leiomyoma of uterus, unspecified (principal)
CPT/HCPCS: 36415; 76830; 80053; 81001; 81025; 83690; 85025; 85651; 86140; 96374; 96375; 96376; 99285; J2270; J2405; J2765

== ENCOUNTER 2023-09-27 09:08 | Observation (INO) | payer OTHER, SELFPAY ==
[2023-09-20 10:02] LABS: Add Urine Microscopic? NO; Charge for UA Resulting for Rev
--- NOTE | 2023-09-20 10:04 | ANES.PREANE2 ---
Pre-Anesthetic Assessment Height/Weight: Height 1.64 m Operation Date: 09/27/23 13:50 Proposed Procedures p Total Vaginal Hysterectomy 14515, D25.9, N94.6(Not Applicable) - Malik Mina MD Familial anesthetic complications: None Was Beta Kin taken within 24 hours: N/A Was Clonidine taken within 24 hours: N/A Social No alcohol and No tobacco Exam alert, oriented x 3, clear to auscultation bilaterally and regular rate & rhythm Airway Mallampati: Class II Dentition: full Anesthetic Plan ASA status: 1 Anesthesia: General Risk of > 500 ml blood loss (7ml/kg in children): No Medications/Allergies Home Medications Medication Instructions Recorded Confirmed Last Taken Type hydrocodone 7.5 mg-acetaminophen 1 tab PO Q8H PRN pain #20 tabs 07/16/23 09/20/23 Unknown Rx 325 mg tablet ondansetron HCl 4 mg tablet 4 mg PO Q8H #30 tabs 07/16/23 09/20/23 Unknown Rx ibuprofen 800 mg tablet 800 mg PO TID PRN pain #90 tabs 08/18/23 09/20/23 09/16/23 Rx buspirone 15 mg tablet 15 mg PO BID #60 tabs 08/29/23 09/20/23 09/20/23 Rx fluoxetine 40 mg capsule 40 mg PO DAILY #30 caps 08/29/23 09/20/23 09/20/23 Rx hydroxyzine HCl 10 mg tablet 20 mg (2 x 10 mg) PO .HS PRN 08/29/23 09/20/23 Unknown Rx insomnia #60 tabs Allergies Allergy/AdvReac Type Severity Reaction Status Date / Time phentermine AdvReac racing Verified 09/19/23 08:11 heart rate [facility] Anesthesia Medical History Psychiatric care Surgical History History of endometrial ablation (~2021) Family History Father Stroke Denies family history of Colon cancer Ovarian cancer Prostate cancer Diabetes Heart disease Hyperlipidemia Breast cancer Hypertension Uterine cancer Thyroid disease Social History Smoking and tobacco/nicotine status: former use of tobacco/nicotine Data Anesthesia 09/20/23 09:57 09/20/23 09:57 Cardiac Studies: No Data to Display
[2023-09-20 10:05] LABS: Basophils % 0.7 %; Eosinophils # 0.1 10^3/uL (0.0-0.8); Eosinophils % 2.4 %; Hematocrit 41.4 % (36-47); Lymphocytes # 1.9 10^3/uL (0.8-4.8); Mean Corpuscular HGB Conc 31.6 g/dL (30-55); Mean Corpuscular Hemoglobin 27.5 pg (27-33); Mean Platelet Volume 9.8 fL (7.4-10.4); Monocytes # 0.4 10^3/uL (0.2-0.9); Monocytes % 6.3 %; Neutrophils # 3.12 10^3/uL (1.8-7.7); Neutrophils % 56.4 %; Nucleated Red Blood Cells % 0 %; Platelet Count 334 10^3/cmm (157-399); Red Blood Count 4.76 10^6/uL (3.85-5.65); Red Cell Distribution Width 12.5 % (12.1-15.1); White Blood Count 5.53 10^3/uL (3.29-11.43)
[2023-09-20 10:23] LABS: Bilirubin Urine Neg (Negative); Blood Urine Neg (Negative); Glucose Urine UA Norm (Normal); Ketones Urine Negative (Negative); Leukocyte Esterase Urine Negative (Negative); Nitrate Urine Negative (Negative); Protein Urine Neg (Negative); Specific Gravity, Urine 1.015 (1.005-1.030); Urine Appearance Clear (CLEAR); Urine Color Yellow (Yellow); Urobilinogen Urine Norm (Negative); pH Urine 6 (5-7)
[2023-09-20 10:33] LABS: Alanine Aminotransferase 12 U/L (0-33); Alkaline Phosphatase 102 U/L (35-105); Anion Gap 16.2 (5-19); Aspartate Amino Transferase 13 U/L (0-32); Blood Urea Nitrogen 11 mg/dL (6-20); Carbon Dioxide 22 mmol/L (22-29); Chloride 105 mmol/L (98-107); Globulin 3.2 g/dL (1.3-4.6); Glomerular Filtration Rate 113.8 mL/min (90-130); Glucose 94 mg/dL (65-115); Osmolality Calculated 287 mOsm/kg (285-295); Potassium 4.2 mmol/L (3.5-5.1); Sodium 139 mmol/L (136-145); Total Bilirubin 0.3 mg/dL (0.15-1.2); Total Protein 7.2 g/dL (6.6-8.7)
[2023-09-27] VITALS (16 sets, daily range): BP systolic 94–124; BP diastolic 55–75; PULSE 56–77; RESP 14–18; TEMP 36.6–36.8; O2SAT 91–98; BMI 33.7
[2023-09-27] MEDS: sodium chloride 0.9% 500 ML IV (06:30)
[2023-09-27] MEDS: ceFOXitin 2,000 mg SDV 2000 MG IVP (06:30)
--- NOTE | 2023-09-27 06:30 | P.ANESUD_ITS ---
Pre-Anesthetic Update Pre-Anesthetic Assessment: Date of Surgery/Procedure: 09/27/23 Preop Maria Victoria gnosis: uterine fibroid, Dysmenorrhea Proposed Procedure: Operation Date: 09/27/23 07:00 Proposed Procedures p Total Vaginal Hysterectomy 72795, D25.9, N94.6(Not Applicable) - Malik Mina MD Any changes to Pre-Anesthetic Assessment?: No Last Intake: Intake Last Liquid Date 09/26/23 Last Liquid Time 19:30 Last Solid Date 09/26/23 Last Solid Time 18:30 Vitals: Temperature 98.3 F 09/27/23 06:06 Temperature Source Temporal Artery S can 09/27/23 06:06 Pulse Rate 65 09/27/23 06:06 Respiratory Rate 17 09/27/23 06:06 Blood Pressure 124/74 09/27/23 06:06 Blood Pressure Serena n 90 09/27/23 06:06 Pulse Oximetry 97 09/27/23 06:06 Oxygen Delivery Me thod Room Air 09/27/23 06:06 Exam: Pre-Anes Outpt Exam: alert, oriented x 3, clear to auscultation bilaterally and regular rate & rhythm Cardiac Studies: No Data to Display
[2023-09-27] MEDS: scopolamine 1.5 Patch 1 PATCH TRANSDERMA (06:31)
[2023-09-27] MEDS: sodium chloride 0.9% 1,000 ML 30 ML IV (06:35)
[2023-09-27 06:43] LABS: OR HCG Qualitative Urine Negative (Negative)
--- NOTE | 2023-09-27 06:57 | W.PM.OPSUD ---
Surgery/Procedure H&P Update DATE OF PROCEDURE: September 27, 2023 DATE H&P PERFORMED: 09/19/23 H&P UPDATE INFORMATION: I have reviewed H&P completed within last 30 days, I have examined patient prior to procedure and No changes to prior documentation PREOP DIAGNOSIS: uterine fibroid, Dysmenorrhea PLANNED PROCEDURE: Operation Date: 09/27/23 07:00 Proposed Procedures p Total Vaginal Hysterectomy 54130, D25.9, N94.6(Not Applicable) - Malik Mina MD
[2023-09-27] MEDS: lidocaine-epi 2% PF 1:200,000 20 mL SDV INJECTION (07:43)
--- NOTE | 2023-09-27 08:23 | PM.OP ---
Operative Report Date of procedure: September 27, 2023 Pre-op diagnosis: Uterine fibroid Dysmenorrhea Post-op diagnosis: same Procedure done: Total vaginal hysterectomy Specimens removed/disposition: Uterus with left and right fallopian tube Surgeon: Malik Mina MD Estimated blood loss (mL): 100 IV fluids (mL): 1,000 Urine output (mL): 200 Complications: None Findings: Enlarged uterus Procedure: After informed consent and risks, benefits, indications and alternatives reviewed with the patient was taken to the operating room. The patient was placed in dorsal lithotomy position prepped, and draped in the usual sterile fashion. The pre-procedure timeout verifying the correct patient, procedure, site and side, could not requirements was performed and acknowledge by the OR team. A Gregorio catheter was placed. A Bookwalter vaginal retractor was placed into the vagina in usual manner visualize the cervix. Cervix was grasped with a single tooth tenaculum and circumferentially infiltrated with 2% lidocaine with epinephrine. Then cervix was circumferentially incised with bovie and the bladder was dissected off the pubovesical cervical fascia anteriorly with a sponge stick and Metzenbaum scissors. The anterior peritoneal reflection was identified and the anterior cul-de-sac was entered sharply with Metzenbaum scissors. The same procedure was performed posteriorly and a posterior colpotomy was made through the posterior cul-de-sac space without difficulty and the posterior blade of the Bookwalter vaginal retractor was advanced posteriorly into the cul-de-sac. At this time, the left and right uterosacral ligaments were isolated and ligated with 0 Vicryl. The LigaSure device was placed over the uterosacral ligaments on either side and was then used in a serial fashion up through the cardinal ligaments bilaterally cross-clamped, cut, and sealed with the LigaSure device. Finally, the uterine arteries were cross-clamped, cut, sealed and ligated with the LigaSure device. Hemostasis was assured. The broad ligaments were then serially clamped, sealed and cut with the LigaSure device on both sides. Excellent hemostasis was visualized. Both cornua were clamped, sealed and cut with the LigaSure device. Then the pedicles were then suture ligated with excellent hemostasis. The uterus was excised and submitted for pathologic evaluation. No other abnormalities were noted in the pelvic cavity. Right fallopian tube was identified, grasped with Cassie clamps, then clamped, sealed and cut with the LigaSure device. The same was performed with a left fallopian tube. The peritoneum was then closed in a pursestring fashion with 0 Vicryl suture. Bludigo was given IV. The vaginal cuff angles were closed with [id number] #0 Vicryl suture on both sides and transfixed with the ipsilateral cardinal and uterosacral ligaments. The remainder of the vaginal cuff was closed with #0 Vicryl in a running locked fashion. At this time, instruments were removed from the vagina at hemostasis assured. Gregorio catheter was then noted yielding clear blue urine. The patient was taken out of dorsal lithotomy position and awakened from the general anesthesia. The patient tolerated the procedure well and was taken to the PACU recovery room in a stable condition. Sponge, lap, needle and instruments counts were correct x3.
--- NOTE | 2023-09-27 09:15 | ANE.PACU2 ---
Inpatient post-anesthesia follow up: Airway intact: Yes Vital signs: Temperature 98.0 F Pulse Rate 56 Respiratory Rate 16 Blood Pressure 94/59 Pulse Oximetry 95 Oxygen Delivery Me thod Room Air Oxygen Flow Rate Fraction of Inspir ed Oxygen Hydration adequate: Yes Nausea and vomiting: No Pain level: 1 Mental status: Baseline
[2023-09-27] MEDS: dextrose 5%-lactated ringers 1,000 ML 125 ML IV (12:17)
[2023-09-27] MEDS: HYDROcodone-acetaminophen 5-325 mg Tablet PO (12:17)
[2023-09-27] MEDS: ketorolac 30 mg/mL INJ IVP ×2 (14:03→20:14)
[2023-09-27] MEDS: docusate sodium 100 mg Capsule PO (20:14)
[2023-09-27] MEDS: BuSPIRONE 10 mg Tablet 15 MG PO (20:44)
[2023-09-28] MEDS: ketorolac 30 mg/mL INJ IVP (01:54)
[2023-09-28 04:53] VITALS: BP 106/67; PULSE 68; RESP 16; TEMP 36.8; O2SAT 100
[2023-09-28 05:18] LABS: Hematocrit 37.2 % (36-47); Mean Corpuscular HGB Conc 32.3 g/dL (30-55); Mean Corpuscular Volume 86.9 fl (85-98); Mean Platelet Volume 10.1 fL (7.4-10.4); Platelet Count 331 10^3/cmm (157-399); Red Blood Count 4.28 10^6/uL (3.85-5.65); Red Cell Distribution Width 13.2 % (12.1-15.1); White Blood Count 11.07 10^3/uL (3.29-11.43)
--- NOTE | 2023-09-28 09:39 | PM.OBGYDC ---
Discharge Providers CHARACTER ACTRESS Date of Admission: 09/27/23 09:08 Date of Discharge: 09/28/23 Attending Provider at Admission: Malik Mina MD Attending Provider at Discharge: Malik Mina MD Primary Care Provider: Elías Aragon MD Reason for Visit Reason for Visit: D25.9 Hospital Course Hospital Course Mrs. Malik she 33-year-old female G5, P3 with a history of secondary dysmenorrhea and uterine fibroid. Admitted for planned total vaginal hysterectomy. The procedure was performed without complication. Overnight observation was uneventful. She is after Hemodynamically stable postoperative day 1. Tolerating diet well. Ambulating without difficulty. She was counseled regarding weight lifting limitations to 10 pounds and pelvic rest for 6 weeks (no sex, no tampons, no vaginal douches). Return to the emergency room if any fever, increased bleeding or pain. Physical Exam Narrative: GA: Alert and oriented ?3. HEENT: WNL. Heart: Regular rate and rhythm. Lungs: Clear to auscultation bilaterally. Abdomen: Bowel sounds present, nontender. DEVELOPMENT VICE PRESIDENT: spotting bleeding. Extremities: No edema, no cyanosis, no calves pain. Urinary Catheter Management: Gregorio: Cath Placed During This Visit: yes, but has since been removed by the nurse Reason for Continuing Indwelling Catheter: Decision to DC Catheter Urinary Catheter Date of Insertion: 09/27/23 Urinary Catheter Time of Insertion: 07:29 Date Urinary Catheter Removed: 09/28/23 Time Urinary Catheter Discontinued: 04:53 History History History 5 Term 3 0 Miscarriages/Ectopic 2 Living Children 3 Discharge Data Studies Completed and Pending Pending at discharge Category Date Time Status Pathology: Surgical [PTH] Routine Pth 09/27/23 08:19 Received Laboratory Results WBC 11.07 10^3/uL (3.29-11.43) 09/28/23 05:00 RBC 4.28 10^6/uL (3.85-5.65) 09/28/23 05:00 Hgb 12.00 g/dL (11.27-16.99) 09/28/23 05:00 Hct 37.2 % (36-47) 09/28/23 05:00 MCV 86.9 fl (85-98) 09/28/23 05:00 MCH 28.0 pg (27-33) 09/28/23 05:00 MCHC 32.3 g/dL (30-55) 09/28/23 05:00 RDW 13.2 % (12.1-15.1) 09/28/23 05:00 Plt Count 331 10^3/cmm (157-399) 09/28/23 05:00 MPV 10.1 fL (7.4-10.4) 09/28/23 05:00 Neut % (Auto) 56.4 % 09/20/23 09:57 Lymph % (Auto) 34.0 % 09/20/23 09:57 [place] % (Auto) 6.3 % 09/20/23 09:57 Eos % (Auto) 2.4 % 09/20/23 09:57 Baso % (Auto) 0.7 % 09/20/23 09:57 Neut # (Auto) 3.12 10^3/uL (1.8-7.7) 09/20/23 09:57 Lymph # (Auto) 1.9 10^3/uL (0.8-4.8) 09/20/23 09:57 [place] # (Auto) 0.4 10^3/uL (0.2-0.9) 09/20/23 09:57 Eos # (Auto) 0.1 10^3/uL (0.0-0.8) 09/20/23 09:57 Baso # (Auto) 0.0 10^3/uL (0.0-0.1) 09/20/23 09:57 Nucleated RBC % (auto) 0 % 09/20/23 09:57 Nucleated RBCs # 0.0 /100WBC 09/20/23 09:57 Sodium 139 mmol/L (136-145) 09/20/23 09:57 Potassium 4.2 mmol/L (3.5-5.1) 09/20/23 09:57 Chloride 105 mmol/L (98-107) 09/20/23 09:57 Carbon Dioxide 22 mmol/L (22-29) 09/20/23 09:57 Anion Gap 16.2 (5-19) 09/20/23 09:57 BUN 11 mg/dL (6-20) 09/20/23 09:57 Creatinine 0.6 mg/dL (0.5-0.9) 09/20/23 09:57 GFR Calculation 113.8 mL/min (90-130) 09/20/23 09:57 Glucose 94 mg/dL (65-115) 09/20/23 09:57 Calculated Osmolality 287 mOsm/kg (285-295) 09/20/23 09:57 Calcium 9.0 mg/dL (8.5-10.5) 09/20/23 09:57 Total Bilirubin 0.3 mg/dL (0.15-1.2) 09/20/23 09:57 AST 13 U/L (0-32) 09/20/23 09:57 ALT 12 U/L (0-33) 09/20/23 09:57 Alkaline Phosphatase 102 U/L (35-105) 09/20/23 09:57 Total Protein 7.2 g/dL (6.6-8.7) 09/20/23 09:57 Albumin 4.0 g/dL (3.5-5.2) 09/20/23 09:57 Globulin 3.2 g/dL (1.3-4.6) 09/20/23 09:57 Urine Color Yellow (Yellow) 09/20/23 09:38 Urine Appearance Clear (CLEAR) 09/20/23 09:38 Urine pH 6 (5-7) 09/20/23 09:38 Ur Specific [place] 1.015 (1.005-1.030) 09/20/23 09:38 Urine Protein Neg (Negative) 09/20/23 09:38 Urine Glucose (UA) Norm (Normal) 09/20/23 09:38 Urine Ketones Negative (Negative) 09/20/23 09:38 Urine Blood Neg (Negative) 09/20/23 09:38 Urine Nitrate Negative (Negative) 09/20/23 09:38 Urine Bilirubin Neg (Negative) 09/20/23 09:38 Urine Urobilinogen Norm mg/dL (Negative) 09/20/23 09:38 Ur Leukocyte Esterase Negative (Negative) 09/20/23 09:38 Urine HCG, Qual Negative (Negative) 09/27/23 06:42 Blood Type A Positive 09/27/23 06:15 Rho(D) Type Rh positive 09/27/23 06:15 Antibody Screen Negative 09/27/23 06:15 Vitals Last Vital Signs Temp 98.2 F 09/28/23 04:53 Pulse 68 09/28/23 04:53 Resp 16 09/28/23 04:53 BP 106/67 09/28/23 04:53 Pulse Ox 100 09/28/23 04:53 O2 Del Method Room Air 09/28/23 04:53 Results Labs OB ([facility]): Blood Type A Positive 09/27/23 Antibody Screen Negative 09/27/23 Hct 37.2 % (36-47) 09/28/23 Hgb 12.00 g/dL (11.27-16.99) 09/28/23 Rho(D) Type Rh positive 09/27/23 Plt Count 331 10^3/cmm (157-399) 09/28/23 HCG, Qual Negative (Negative) 07/16/23 Discharge Plan Discharge Patient Disposition: Home Condition: Stable Prescriptions: New hydrocodone-acetaminophen 5-325 mg tablet 1 tab PO Q4H PRN (Reason: pain) Qty: 20 0RF ibuprofen 800 mg tablet 800 mg PO TID PRN (Reason: pain) Qty: 60 0RF acetaminophen 325 mg capsule 325 mg PO Q4H PRN (Reason: fever or postoperative pain) Qty: 60 0RF Continued hydroxyzine HCl 10 mg tablet 20 mg PO .HS PRN (Reason: insomnia) Qty: 60 2RF buspirone 15 mg tablet 15 mg PO BID Qty: 60 2RF fluoxetine 40 mg capsule 40 mg PO DAILY Qty: 30 2RF ibuprofen 800 mg tablet 800 mg PO TID PRN (Reason: pain) Qty: 90 1RF hydrocodone-acetaminophen 7.5-325 mg tablet 1 tab PO Q8H PRN (Reason: pain) Qty: 20 0RF ondansetron HCl 4 mg tablet 4 mg PO Q8H Qty: 30 0RF Discharge Orders: Discharge Order (Routine); Ordered 09/28/23 Ordered By: Malik Mina Referrals: Malik Mina MD [Physician] - (* Your 2 week post op appointment is on 10/12/2023 at 2:15pm * Your 6 week post op appointment is on 11/10/2023 at 10:30am) Discharge Diet: Usual diet Discharge Activity: Limit activity as instructed Patient Instructions: Acute Wound Care (DC), Salpingectomy (DC), Hysterectomy (DC), Vaginal Hysterectomy (DC), OB Discharge Report, OB Food/Drug Interaction Guide, Opioid Safety, Post Anesthesia Care Activity Restrictions/Additional Instructions: 1. Please call [facility] on next working day to make your post-operative appointment in 2 weeks. 2. Please stay home until you come back to the clinic on first post-hospatilization check up. 3. Please follow instructions on your medications CAREFULLY. 4. If you have abdominal incision, do not cover it unless dressing is necessary because of drainage. OK to shower, but avoid bath. Leave steri-strips until they fall off. If they are still on one week after surgery, you may remove them. 5. If you had vaginal surgery or vaginal repair, Dr. Mina may instruct you to take SITZ bath. 6. Yellow, blood tinged odorous vaginal discharge is usually normal after hysterectomy or vaginal surgeries. 7. No SEXUAL INTERCOURSE, tampons, or douches until you are completely released from the post-operative care. 8. Avoid constipation by eating right and maybe using some Metamucil or Milk of Magnesia. 9. All prescription refills are given during the working hours. Please do no wait till it runs out. Call the clinic at [phone] before your medication runs out. The clinic will get in touch with your doctor to prescribe medications if necessary. 10. Please remain within 40 mile radius from our hospital because emergencies do happen now and then during the post-operative period. 11. If you have stairs at home, take one step at a time slowly and minimize the number of trips. It helps to stay in one floor for the next few days. No lifting except what you can lift by one hand until you are released from the post-operative care. 12. Driving is discouraged until you are well healed. It may be 3-4 weeks before you feel strong enough to drive. You should be able to turn and look through the rear window without pain and you should be able to push the brake pedal very hard without pain before you drive. No fast rules, but SAFETY should be your primary concern. DO NOT drive if you are on sedating medications such as narcotics. 13. Call the clinic (during working hours) to make urgent appointment or go to the Emergency room, if any of the following occurs: i. Vaginal bleeding becomes heavy, more than a period. ii. Incision becomes red and sore, or drains pus. iii. Your TEMPERATURE is over 100.4F or you have chill. iv. IV site becomes red and swollen (a little ``knot?? is usually OK) v. Persistent nausea and vomiting vi. Persistent constipation or diarrhea vii. Rash or allergic reaction to medications. Discharge Attestations CHARACTER ACTRESS Time Spent in Discharge Care*: greater than 30 min Coding Level of Care Code Acute Code for Chg Fwd
[2023-09-28 12:10] VITALS: BP 101/66; PULSE 67; RESP 16; TEMP 36.6
== END 2023-09-28 12:15 | disposition home or self-care (01) ==
LOC: OBGYN 09:09
PROVIDERS: Anesthesiology; Admitting Provider Obstetrics & Gynecology; PCP Family Medicine; Visit Provider Obstetrics & Gynecology
PROC: (CPT 58262; principal; 2023-09-27 07:00)
PROC: (CPT 58700; 2023-09-27 07:00)
DX: D25.1 Intramural leiomyoma of uterus (principal); D25.0 Submucous leiomyoma of uterus; N72 Inflammatory disease of cervix uteri; Z87.891 Personal history of nicotine dependence
CPT/HCPCS: 58262; 36415; 80053; 81003; 81025; 85025; 85027; 86850; 86900; 88307; 96374; 96376; G0378; J0694; J1100; J1170; J1885; J2250; J2405; J2704; J2710; J3010; J3490; J7030; J7040; J7121

== ENCOUNTER 2023-10-09 17:47 | Emergency (ER) | payer OTHER, SELFPAY ==
[2023-10-09 17:54] VITALS: BP 116/75; PULSE 69; RESP 14; TEMP 36.7; O2SAT 98
[2023-10-09 18:15] LABS: Basophils # 0.1 10^3/uL (0.0-0.1); Basophils % 0.6 %; Eosinophils # 0.2 10^3/uL (0.0-0.8); Eosinophils % 2.1 %; Hematocrit 39.8 % (36-47); Lymphocytes # 2.4 10^3/uL (0.8-4.8); Lymphocytes % 29.6 %; Mean Corpuscular HGB Conc 32.2 g/dL (30-55); Mean Corpuscular Hemoglobin 27.5 pg (27-33); Mean Corpuscular Volume 85.4 fl (85-98); Mean Platelet Volume 9.2 fL (7.4-10.4); Monocytes # 0.5 10^3/uL (0.2-0.9); Monocytes % 6.2 %; Neutrophils # 5.02 10^3/uL (1.8-7.7); Neutrophils % 61.3 %; Nucleated Red Blood Cells % 0 %; Platelet Count 502 10^3/cmm (157-399); Red Blood Count 4.66 10^6/uL (3.85-5.65); Red Cell Distribution Width 12.5 % (12.1-15.1)
--- NOTE | 2023-10-09 18:32 | CTR_ITS ---
PROCEDURE INFORMATION: Exam: CT Abdomen And Pelvis With Contrast Exam date and time: 10/09/2023 6:46 PM Age: 33 years old Clinical indication: Prior surgery; Surgery date: <1 month; Surgery type: Total hysterectomy 09/27/2023. Patient HX: Persistent vaginal bleeding since full hysterectomy on 09/27/2023. ; Additional info: Vaginal bleeding post op hysterectomy pelvic pain TECHNIQUE: Imaging protocol: Computed tomography of the abdomen and pelvis with contrast. Axial, coronal and sagittal reformatted images were created and reviewed. Radiation optimization: All CT scans at this facility use at least one of these dose optimization techniques: automated exposure control; mA and/or kV adjustment per patient size (includes targeted exams where dose is matched to clinical indication); or iterative reconstruction. Contrast material: OMNI 350; Contrast volume: 100 ml; Contrast route: INTRAVENOUS (IV); COMPARISON: US transvaginal [id number] 07/16/2023 7:06 PM RADIATION DOSE METRICS: Total DLP (mGy-cm): 784.63 FINDINGS: Liver: Mild hepatomegaly. Gallbladder and biliary ducts: No radiodense gallstones. No biliary ductal dilatation. Pancreas: Unremarkable. Spleen: Unremarkable. Adrenal glands: Normal. No mass. Kidneys and ureters: No mass. No radiodense calculi. No hydronephrosis. Stomach and bowel: No bowel wall thickening. No obstruction. No pneumatosis. Appendix: Normal. Intraperitoneal space: Small nonspecific free pelvic fluid, likely physiologic and/or reactive. No convincing organized fluid collection. No free air. Vasculature: Unremarkable. No aneurysm. Lymph nodes: No pathologically enlarged lymph nodes. Urinary bladder: Mild circumferential urinary bladder wall thickening, likely secondary to underdistention. Reproductive: Postoperative changes associated with recent hysterectomy. Small amount of loculated fluid and gas in the region of the vaginal cuff, likely postoperative in nature. Bones/joints: No acute osseous abnormality. Mild degenerative changes. Soft tissues: Tiny, fat containing umbilical hernia. CT/CT abdomen pelvis w con* [id number] IMPRESSION: 1. Postoperative changes associated with recent hysterectomy. Small amount of loculated fluid and gas in the region of the vaginal cuff, likely postoperative in nature. No convincing organized collection. Continued clinical and imaging surveillance is recommended to exclude developing abscess. 2. Additional findings, as above.
[2023-10-09 18:34] LABS: Alanine Aminotransferase 11 U/L (0-33); Albumin Level 3.7 g/dL (3.5-5.2); Alkaline Phosphatase 115 U/L (35-105); Aspartate Amino Transferase 12 U/L (0-32); Blood Urea Nitrogen 11 mg/dL (6-20); Calcium 9.1 mg/dL (8.5-10.5); Carbon Dioxide 25 mmol/L (22-29); Chloride 104 mmol/L (98-107); Creatinine Clr Calc Pharmacy 141.2745; Globulin 4.2 g/dL (1.3-4.6); Glomerular Filtration Rate 113.8 mL/min (90-130); Glucose 86 mg/dL (65-115); Osmolality Calculated 293 mOsm/kg (285-295); Sodium 142 mmol/L (136-145); Total Bilirubin 0.2 mg/dL (0.15-1.2); Total Protein 7.9 g/dL (6.6-8.7)
[2023-10-09 18:46] LABS: Charge for UA Resulting for Rev
[2023-10-09] MEDS: iohexol 350 mg/mL 500 mL Btl (per mL) IV (18:49)
[2023-10-09 18:50] VITALS: BP 110/68; PULSE 70; O2SAT 98
[2023-10-09 18:51] LABS: Bilirubin Urine Negative (Negative); Blood Urine 3+ (Negative); Glucose Urine UA Negative (Normal); Ketones Urine Negative (Negative); Leukocyte Esterase Urine 1+ (Negative); Nitrate Urine Negative (Negative); Protein Urine Negative (Negative); Specific Gravity, Urine 1.015 (1.005-1.030); Urine Appearance Clear (CLEAR); Urine Color Yellow (Yellow); Urobilinogen Urine 0.2 mg/dL (Negative); pH Urine 6.5 (5-7)
[2023-10-09 18:55] LABS: Bacteria Urine None Seen /hpf; Hyaline Casts Urine 0-4 /lpf; RBC Urine >100 /hpf (0-2); Squamous Epithelial Cell Urine 0-5 /hpf (0-5); WBC Urine 21-50 /hpf (0-5)
[2023-10-09 19:04] LABS: Add Urine Culture? Yes
--- NOTE | 2023-10-09 19:09 | ED_ITS ---
HPI - Female Genitourinary 2 General: Chief complaint: Vaginal Bleeding Stated complaint: vaginal bleeding post surgery Time Seen by Provider: 10/09/23 18:09 History of Present Illness: 33-year-old female who has had a hystere ctomy on 09/26. This was a vaginal hysterectomy with scope assist. She presents with a significant increase in vaginal bleeding. She has blood daily since the surgery. Today, however, she passed large clots on 2 different occasions, once her pad and once in the toilet. No significant pain although she has had some pelvic cramping today. No fever. No blood from the nose or stool. No history of bleeding disorders. Related Data Previous Rx's Medication Instructions Recorded hydrocodone 7.5 mg-acetaminophen 1 tab PO Q8H PRN pain #20 tabs 07/16/23 325 mg tablet ondansetron HCl 4 mg tablet 4 mg PO Q8H #30 tabs 07/16/23 ibuprofen 800 mg tablet 800 mg PO TID PRN pain #90 tabs 08/18/23 buspirone 15 mg tablet 15 mg PO BID #60 tabs 08/29/23 fluoxetine 40 mg capsule 40 mg PO DAILY #30 caps 08/29/23 hydroxyzine HCl 10 mg tablet 20 mg (2 x 10 mg) PO .HS PRN 08/29/23 insomnia #60 tabs acetaminophen 325 mg capsule 325 mg PO Q4H PRN fever or 09/28/23 postoperative pain #60 caps hydrocodone 5 mg-acetaminophen 325 1 tab PO Q4H PRN pain #20 tabs 09/28/23 mg tablet ibuprofen 800 mg tablet 800 mg PO TID PRN pain #60 tabs 09/28/23 Allergies Allergy/AdvReac Type Severity Reaction Status Date / Time phentermine AdvReac racing Verified 09/27/23 06:02 heart rate PFSH ED 2 PFSH: Medical History Psychiatric care Surgical History History of endometrial ablation (~2021) Family History Father Stroke Denies family history of Colon cancer Ovarian cancer Prostate cancer Diabetes Heart disease Hyperlipidemia Breast cancer Hypertension Uterine cancer Thyroid disease Social History Smoking and tobacco/nicotine status: former use of tobacco/nicotine Physical Exam 2 Const: COMMON NORMALS: no acute distress GENERAL APPEARANCE: cooperative; not ill appearing and not frail appearing HENMT: COMMON NORMALS: normocephalic, atraumatic and Normal external nose present HEAD & SCALP: normocephalic and atraumatic FACE & SINUS: normal facial exam and face symmetric NOSE: Normal external nose present Eye: COMMON NORMALS: Equal, round and reactive pupils present and EOMs intact bilaterally PUPIL: Yes Equal, round and reactive pupils present Neck/C-Spine: GENERAL: Yes trachea midline Chest: CHEST: Yes Symmetrical chest wall rise Resp: COMMON NORMALS: normal respiratory effort, No retractions, No use of accessory muscles and clear to auscultation bilaterally AUSCULTATION: clear to auscultation bilaterally Cardio: COMMON NORMALS: regular rate and regular rhythm RATE: regular rate RHYTHM: regular rhythm GI: COMMON NORMALS: Normal to inspection, nondistended, normoactive bowel sounds present Extremity: COMMON NORMALS: no pedal edema Neuro: JOSH COMA SCALE: document GCS findings Josh coma scale eye opening: Spontaneous [place] coma scale verbal response: Orientated Josh coma scale motor response: Obey commands [place] coma scale total score: 15 S ENSORY EXAM: Yes extremities (intact) Psych: COMMON NORMALS: speech normal SPEECH: Yes normal speech Skin: COMMON NORMALS: no rashes or lesions noted GENERAL SKIN EXAM: no rashes or lesions noted Course 2 Vital Signs: Vital signs: Vital Signs Temperature 98.1 F 10/09/23 21:24 Pulse Rate 70 10/09/23 21:24 Respiratory Rate 16 10/09/23 21:24 Blood Pressure 133/73 10/09/23 21:24 Pulse Oximetry 100 10/09/23 21:24 Oxygen Delivery Me thod Room Air 10/09/23 19:40 [facility] - Female Medical Decision Making 33-year-old female postop vaginal bleeding from hysterectomy, which was 12 days ago. Hemoglobin is 13. White blood cell count is 8.2. Platelet count is elevated at 502. BMP is normal. Urinalysis reveals hematuria, likely contaminant from vaginal bleeding. Liver enzymes are normal. Awaiting CT results. Lab Data 10/09/23 18:07 10/09/23 18:07 Radiology Impressions Abdomen/Pelvis CT 10/09/23 18:32 IMPRESSION: 1. Postoperative changes associated with recent hysterectomy. Small amount of loculated fluid and gas in the region of the vaginal cuff, likely postoperative in nature. No convincing organized collection. Continued clinical and imaging surveillance is recommended to exclude developing abscess. 2. Additional findings, as above. Laboratory Results WBC 8.20 10^3/uL (3.29-11.43) 10/09/23 18:07 RBC 4.66 10^6/uL (3.85-5.65) 10/09/23 18:07 Hgb 12.80 g/dL (11.27-16.99) 10/09/23 18:07 Hct 39.8 % (36-47) 10/09/23 18:07 MCV 85.4 fl (85-98) 10/09/23 18:07 MCH 27.5 pg (27-33) 10/09/23 18:07 MCHC 32.2 g/dL (30-55) 10/09/23 18:07 RDW 12.5 % (12.1-15.1) 10/09/23 18:07 Plt Count 502 10^3/cmm (157-399) H 10/09/23 18:07 MPV 9.2 fL (7.4-10.4) 10/09/23 18:07 Neut % (Auto) 61.3 % 10/09/23 18:07 Lymph % (Auto) 29.6 % 10/09/23 18:07 [place] % (Auto) 6.2 % 10/09/23 18:07 Eos % (Auto) 2.1 % 10/09/23 18:07 Baso % (Auto) 0.6 % 10/09/23 18:07 Neut # (Auto) 5.02 10^3/uL (1.8-7.7) 10/09/23 18:07 Lymph # (Auto) 2.4 10^3/uL (0.8-4.8) 10/09/23 18:07 [place] # (Auto) 0.5 10^3/uL (0.2-0.9) 10/09/23 18:07 Eos # (Auto) 0.2 10^3/uL (0.0-0.8) 10/09/23 18:07 Baso # (Auto) 0.1 10^3/uL (0.0-0.1) 10/09/23 18:07 Nucleated RBC % (auto) 0 % 10/09/23 18:07 Nucleated RBCs # 0.0 /100WBC 10/09/23 18:07 Sodium 142 mmol/L (136-145) 10/09/23 18:07 Potassium 4.0 mmol/L (3.5-5.1) 10/09/23 18:07 Chloride 104 mmol/L (98-107) 10/09/23 18:07 Carbon Dioxide 25 mmol/L (22-29) 10/09/23 18:07 Anion Gap 17.0 (5-19) 10/09/23 18:07 BUN 11 mg/dL (6-20) 10/09/23 18:07 Creatinine 0.6 mg/dL (0.5-0.9) 10/09/23 18:07 GFR Calculation 113.8 mL/min (90-130) 10/09/23 18:07 Glucose 86 mg/dL (65-115) 10/09/23 18:07 Calculated Osmolality 293 mOsm/kg (285-295) 10/09/23 18:07 Calcium 9.1 mg/dL (8.5-10.5) 10/09/23 18:07 Total Bilirubin 0.2 mg/dL (0.15-1.2) 10/09/23 18:07 AST 12 U/L (0-32) 10/09/23 18:07 ALT 11 U/L (0-33) 10/09/23 18:07 Alkaline Phosphatase 115 U/L (35-105) H 10/09/23 18:07 Total Protein 7.9 g/dL (6.6-8.7) 10/09/23 18:07 Albumin 3.7 g/dL (3.5-5.2) 10/09/23 18:07 Globulin 4.2 g/dL (1.3-4.6) 10/09/23 18:07 Urine Color Yellow (Yellow) 10/09/23 18:00 Urine Appearance Clear (CLEAR) 10/09/23 18:00 Urine pH 6.5 (5-7) 10/09/23 18:00 Ur Specific [place] 1.015 (1.005-1.030) 10/09/23 18:00 Urine Protein Negative (Negative) 10/09/23 18:00 Urine Glucose (UA) Negative (Normal) 10/09/23 18:00 Urine Ketones Negative (Negative) 10/09/23 18:00 Urine Blood 3+ (Negative) A 10/09/23 18:00 Urine Nitrate Negative (Negative) 10/09/23 18:00 Urine Bilirubin Negative (Negative) 10/09/23 18:00 Urine Urobilinogen 0.2 mg/dL (Negative) 10/09/23 18:00 Ur Leukocyte Esterase 1+ (Negative) A 10/09/23 18:00 Urine RBC >100 /hpf (0-2) H 10/09/23 18:00 Urine WBC 21-50 /hpf (0-5) H 10/09/23 18:00 Ur Squamous Epith Cells 0-5 /hpf (0-5) 10/09/23 18:00 Amorphous Sediment Not Reportable 10/09/23 18:00 Urine Bacteria None seen /hpf (NONE) 10/09/23 18:00 Hyaline Casts 0-4 /lpf H 10/09/23 18:00 All radiology interpretation(s) finalized by discharge Discharge Plan Discharge Patient Disposition: Home Clinical Impression: Post-operative haemorrhage Condition: Stable Prescriptions: No Action hydroxyzine HCl 10 mg tablet 20 mg PO .HS PRN (Reason: insomnia) Qty: 60 2RF buspirone 15 mg tablet 15 mg PO BID Qty: 60 2RF fluoxetine 40 mg capsule 40 mg PO DAILY Qty: 30 2RF ibuprofen 800 mg tablet 800 mg PO TID PRN (Reason: pain) Qty: 90 1RF hydrocodone-acetaminophen 7.5-325 mg tablet 1 tab PO Q8H PRN (Reason: pain) Qty: 20 0RF ondansetron HCl 4 mg tablet 4 mg PO Q8H Qty: 30 0RF acetaminophen 325 mg capsule 325 mg PO Q4H PRN (Reason: fever or postoperative pain) Qty: 60 0RF ibuprofen 800 mg tablet 800 mg PO TID PRN (Reason: pain) Qty: 60 0RF hydrocodone-acetaminophen 5-325 mg tablet 1 tab PO Q4H PRN (Reason: pain) Qty: 20 0RF Discharge Orders: Discharge ED (Routine); Ordered 10/09/23 Ordered By: Tad Floers Referrals: Elías Aragon MD [Primary Care Provider] - Patient Instructions: Opioid Safety, Pain Management Activity Restrictions/Additional Instructions: Limit bending, stooping, climbing stairs. Do not lift greater than 10 pounds. No sexual intercourse. See your doctor as scheduled. Return for fever, increasing pain, continued passing of significant clots, other concerning symptoms. Let your doctor know you were seen here on Tuesday at your follow- up appointment. Coding Level of Care Code ED Oil Burner Mechanic for Saravanan Hernandez
[2023-10-09 19:12] VITALS: BP 137/71; RESP 16; O2SAT 98
[2023-10-09 19:40] VITALS: BP 133/73; RESP 16; O2SAT 100
[2023-10-09 21:24] VITALS: BP 133/73; PULSE 70; RESP 16; TEMP 36.7; O2SAT 100
== END 2023-10-09 20:30 | disposition home or self-care (01) ==
PROVIDERS: Emergency Medicine; Emergency Provider Emergency Medicine; PCP Family Medicine
DX: N99.820 Postprocedural hemorrhage of a genitourinary system organ or structure following a genitourinary system procedure (principal); Z90.710 Acquired absence of both cervix and uterus; Z87.891 Personal history of nicotine dependence
CPT/HCPCS: 36415; 74177; 80053; 81003; 81015; 85025; 87086; 99285; Q9967

== ENCOUNTER 2023-10-11 12:12 | Emergency (ER) | payer OTHER, SELFPAY ==
[2023-10-11 12:18] VITALS: BP 112/76; PULSE 103; RESP 17; TEMP 36.8; O2SAT 100; BMI 33.6
[2023-10-11 12:37] LABS: Charge for UA Resulting for Rev
[2023-10-11 12:41] LABS: Bilirubin Urine Negative (Negative); Blood Urine 3+ (Negative); Glucose Urine UA Negative (Normal); Ketones Urine Negative (Negative); Leukocyte Esterase Urine 1+ (Negative); Nitrate Urine Negative (Negative); Protein Urine Trace (Negative); Specific Gravity, Urine 1.013 (1.005-1.030); Urine Appearance Cloudy (CLEAR); pH Urine 8.5 (5-7)
[2023-10-11 12:43] LABS: Bacteria Urine None Seen /hpf; Hyaline Casts Urine 0.81 /lpf; RBC Urine >100 /hpf (0-2); Squamous Epithelial Cell Urine 0-5 /hpf (0-5)
[2023-10-11 12:52] LABS: Urine Color Red (Yellow)
[2023-10-11 12:53] LABS: Add Urine Culture? Yes
--- NOTE | 2023-10-11 13:02 | W.ED.FEMALGU ---
HPI - Female Genitourinary General: Chief complaint: Vaginal Bleeding Stated complaint: passing blood clot Time Seen by Provider: 10/11/23 13:01 Source: patient Mode of arrival: ambulatory Limitations: no limitations History of Present Illness: Patient is a 33-year-old female presents to ED today again with a complaint of vaginal bleeding. She was seen here 2 days ago for same complaint. She is status post vaginal hysterectomy with scope assist date of service 09/[address] Mina. Patient states she has had some light bleeding following the surgery but 2 days ago passed a golf ball sized clot thus prompting her ED evaluation. Her hemoglobin on that visit was 12.8. She had a CT scan performed showing most likely postoperative changes. She states bleeding did improve yesterday. She states she was up and walking today when she passed another large clot. She states when she went to the bathroom and wiped she noticed several smaller dime sized clots thus prompting her return evaluation. She does not complain of lightheadedness or dizziness. She arrives with stable vital signs. She is not complaining of much abdominal/pelvic pain-maybe some occasional light cramping. MD elicited complaint: vaginal bleeding Pertinent past history: hysterectomy Onset (ago): hour(s) Severity: mild Quality of pain: cramping (mild/intermittent) Consistency: intermittent Vaginal discharge: none Vaginal bleeding: moderate and clots Exacerbating factors: none Relieving factors: none Associated symptoms: Reports no associated symptoms; Deny abdominal pain or nausea Treatment prior to arrival: none Sexual activity: No Patient : No Related Data Previous Rx's Medication Instructions Recorded hydrocodone 7.5 mg-acetaminophen 1 tab PO Q8H PRN pain #20 tabs 07/16/23 325 mg tablet ondansetron HCl 4 mg tablet 4 mg PO Q8H #30 tabs 07/16/23 ibuprofen 800 mg tablet 800 mg PO TID PRN pain #90 tabs 08/18/23 buspirone 15 mg tablet 15 mg PO BID #60 tabs 08/29/23 fluoxetine 40 mg capsule 40 mg PO DAILY #30 caps 08/29/23 hydroxyzine HCl 10 mg tablet 20 mg (2 x 10 mg) PO .HS PRN 08/29/23 insomnia #60 tabs acetaminophen 325 mg capsule 325 mg PO Q4H PRN fever or 09/28/23 postoperative pain #60 caps hydrocodone 5 mg-acetaminophen 325 1 tab PO Q4H PRN pain #20 tabs 09/28/23 mg tablet ibuprofen 800 mg tablet 800 mg PO TID PRN pain #60 tabs 09/28/23 Allergies Allergy/AdvReac Type Severity Reaction Status Date / Time phentermine AdvReac racing Verified 09/27/23 06:02 heart rate Review of Systems Const: Denies: fever(s), chills, body aches, fatigue or malaise Card: Denies: chest pain Resp: Denies: dyspnea GI: Denies: abdominal pain, nausea, vomiting or diarrhea : Reports: vaginal bleeding; Denies: flank pain or dysuria Musc: Denies: back pain Neuro: Denies: dizziness PFSH ED PFSH: Medical History Psychiatric care Surgical History History of endometrial ablation (~2021) Family History Father Stroke Denies family history of Colon cancer Ovarian cancer Prostate cancer Diabetes Heart disease Hyperlipidemia Breast cancer Hypertension Uterine cancer Thyroid disease Social History Smoking and tobacco/nicotine status: former use of tobacco/nicotine Physical Exam Const: COMMON NORMALS: no acute distress, patient oriented x3, no limitations, alert and well nourished Resp: COMMON NORMALS: normal respiratory effort Cardio: COMMON NORMALS: regular rate and regular rhythm RATE: regular rate RHYTHM: regular rhythm GI: COMMON NORMALS: Normal to inspection, nondistended, normoactive bowel sounds present, Soft to palpation, non-tender, No hepatosplenomegaly present and no masses PALPATION: Yes Soft to palpation and Yes No hepatosplenomegaly present : COMMON NORMALS: Yes no CVA tenderness BLADDER/KIDNEY EXAM: Yes no CVA tenderness Back/Pelvis: COMMON NORMALS: no CVA tenderness Neuro: COMMON NORMALS: patient oriented x3 SENSORIUM/ORIENTATION: Yes alert Course Consultations: Consultation #1: Dr. Mina-recommends repeating CT imaging and if normal can follow up in office tomorrow as scheduled Vital Signs: Vital signs: Vital Signs Temperature 98.3 F 10/11/23 12:18 Pulse Rate 73 10/11/23 15:00 Respiratory Rate 16 10/11/23 15:00 Blood Pressure 94/63 10/11/23 14:30 Pulse Oximetry 95 10/11/23 15:00 Oxygen Delivery Me thod Room Air 10/11/23 15:00 MDM - Female Medical Decision Making Patient is a 33-year-old female here for vaginal bleeding following hysterectomy approximately 2 weeks ago. She arrives in no acute distress. Her hemoglobin 2 days ago was 12.8. She is 11.5 today. She is not having any dizziness or lightheadedness. No significant discomfort. Case discussed with Dr. Mina who recommends repeat CT imaging and if unremarkable she can follow-up with [facility] tomorrow as scheduled. Her CT scan today showing improvement when compared to scan 2 days ago. Findings most consistent with normal postoperative. Patient will be allowed discharge with return precautions. She will follow-up with [facility] tomorrow. Medical Records I reviewed the patient's medical records. Lab Data I reviewed the patient's lab results. 10/11/23 12:55 10/11/23 12:55 Radiology Impressions Abdomen/Pelvis CT 10/11/23 13:40 IMPRESSION: 1. Recent postoperative changes hysterectomy. 2. Again seen is fluid and blood products in the vaginal cuff with postoperative enhancement. This appears improved from previous with less distention of the vaginal cuff today. Findings are likely postoperative. Recommend follow-up imaging if concern for infection or continued bleeding. 3. Trace free fluid in the pelvis. 4. Diffuse fatty infiltration of the liver. 5. No other significant changes. Laboratory Results WBC 7.40 10^3/uL (3.29-11.43) 10/11/23 12:55 RBC 4.26 10^6/uL (3.85-5.65) 10/11/23 12:55 Hgb 11.50 g/dL (11.27-16.99) 10/11/23 12:55 Hct 36.8 % (36-47) 10/11/23 12:55 MCV 86.4 fl (85-98) 10/11/23 12:55 MCH 27.0 pg (27-33) 10/11/23 12:55 MCHC 31.3 g/dL (30-55) 10/11/23 12:55 RDW 12.5 % (12.1-15.1) 10/11/23 12:55 Plt Count 479 10^3/cmm (157-399) H 10/11/23 12:55 MPV 9.4 fL (7.4-10.4) 10/11/23 12:55 Neut % (Auto) 67.8 % 10/11/23 12:55 Lymph % (Auto) 25.3 % 10/11/23 12:55 [place] % (Auto) 4.7 % 10/11/23 12:55 Eos % (Auto) 1.2 % 10/11/23 12:55 Baso % (Auto) 0.7 % 10/11/23 12:55 Neut # (Auto) 5.02 10^3/uL (1.8-7.7) 10/11/23 12:55 Lymph # (Auto) 1.9 10^3/uL (0.8-4.8) 10/11/23 12:55 [place] # (Auto) 0.4 10^3/uL (0.2-0.9) 10/11/23 12:55 Eos # (Auto) 0.1 10^3/uL (0.0-0.8) 10/11/23 12:55 Baso # (Auto) 0.1 10^3/uL (0.0-0.1) 10/11/23 12:55 Nucleated RBC % (auto) 0 % 10/11/23 12: Nucleated RBCs # 0.0 /100WBC 10/11/23 12:55 Sodium 137 mmol/L (136-145) 10/11/23 12:55 Potassium 3.9 mmol/L (3.5-5.1) 10/11/23 12:55 Chloride 102 mmol/L (98-107) 10/11/23 12:55 Carbon Dioxide 23 mmol/L (22-29) 10/11/23 12:55 Anion Gap 15.9 (5-19) 10/11/23 12:55 BUN 13 mg/dL (6-20) 10/11/23 12:55 Creatinine 0.6 mg/dL (0.5-0.9) 10/11/23 12:55 GFR Calculation 113.8 mL/min (90-130) 10/11/23 12:55 Glucose 88 mg/dL (65-115) 10/11/23 12:55 Calculated Osmolality 284 mOsm/kg (285-295) L 10/11/23 12:55 Calcium 8.7 mg/dL (8.5-10.5) 10/11/23 12:55 Total Bilirubin 0.2 mg/dL (0.15-1.2) 10/11/23 12: AST 12 U/L (0-32) 10/11/23 12: ALT 11 U/L (0-33) 10/11/23 12:55 Alkaline Phosphatase 114 U/L (35-105) H 10/11/23 12:55 Total Protein 7.8 g/dL (6.6-8.7) 10/11/23 12: Albumin 3.5 g/dL (3.5-5.2) 10/11/23 12: Globulin 4.3 g/dL (1.3-4.6) 10/11/23 12:55 Urine Color Red (Yellow) A 10/11/23 12: Urine Appearance Cloudy (CLEAR) A 10/11/23 12:28 Urine pH 8.5 (5-7) A 10/11/23 12: Ur Specific [place] 1.013 (1.005-1.030) 10/11/23 12: Urine Protein Trace (Negative) A 10/11/23 12: Urine Glucose (UA) Negative (Normal) 10/11/23 12:28 Urine Ketones Negative (Negative) 10/11/23 12: Urine Blood 3+ (Negative) A 10/11/23 12: Urine Nitrate Negative (Negative) 10/11/23 12:28 Urine Bilirubin Negative (Negative) 10/11/23 12:28 Urine Urobilinogen 1.0 mg/dL (Negative) 10/11/23 12:28 Ur Leukocyte Esterase 1+ (Negative) A 10/11/23 12:28 Urine RBC >100 /hpf (0-2) H 10/11/23 12:28 Urine WBC 11-20 /hpf (0-5) H 10/11/23 12:28 Ur Squamous Epith Cells 0-5 /hpf (0-5) 10/11/23 12:28 Amorphous Sediment Not Reportable 10/11/23 12:28 Urine Bacteria None seen /hpf (NONE) 10/11/23 12:28 Hyaline Casts 0.81 /lpf 10/11/23 12:28 All radiology interpretation(s) finalized by discharge Discharge Plan Discharge Patient Disposition: Home Clinical Impression: Post-op bleeding Qualifiers: Surgical complication system/body Area: genitourinary Procedure type: genitourinary Qualified Code(s): N99.820 - Postprocedural hemorrhage of a genitourinary system organ or structure following a genitourinary system procedure Condition: Stable Prescriptions: No Action hydroxyzine HCl 10 mg tablet 20 mg PO .HS PRN (Reason: insomnia) Qty: 60 2RF buspirone 15 mg tablet 15 mg PO BID Qty: 60 2RF fluoxetine 40 mg capsule 40 mg PO DAILY Qty: 30 2RF ibuprofen 800 mg tablet 800 mg PO TID PRN (Reason: pain) Qty: 90 1RF hydrocodone-acetaminophen 7.5-325 mg tablet 1 tab PO Q8H PRN (Reason: pain) Qty: 20 0RF ondansetron HCl 4 mg tablet 4 mg PO Q8H Qty: 30 0RF acetaminophen 325 mg capsule 325 mg PO Q4H PRN (Reason: fever or postoperative pain) Qty: 60 0RF ibuprofen 800 mg tablet 800 mg PO TID PRN (Reason: pain) Qty: 60 0RF hydrocodone-acetaminophen 5-325 mg tablet 1 tab PO Q4H PRN (Reason: pain) Qty: 20 0RF Discharge Orders: Discharge ED (Routine); Ordered 10/11/23 Ordered By: Alyssa Whitaker Referrals: Elías Aragon MD [Primary Care Provider] - Activity Restrictions/Additional Instructions: As we discussed please follow-up with [facility] at your currently scheduled appointment for tomorrow. You may return to the emergency department in the meantime for severe vaginal bleeding, lightheadedness, dizziness, passing out episodes, severe pain, or any other concerns you may have. Coding Level of Care Code ED Veterinary Technician Instructor for Saravanan Hernandez
[2023-10-11 13:06] LABS: Basophils # 0.1 10^3/uL (0.0-0.1); Basophils % 0.7 %; Eosinophils # 0.1 10^3/uL (0.0-0.8); Eosinophils % 1.2 %; Hematocrit 36.8 % (36-47); Lymphocytes # 1.9 10^3/uL (0.8-4.8); Lymphocytes % 25.3 %; Mean Corpuscular HGB Conc 31.3 g/dL (30-55); Mean Corpuscular Volume 86.4 fl (85-98); Mean Platelet Volume 9.4 fL (7.4-10.4); Monocytes # 0.4 10^3/uL (0.2-0.9); Monocytes % 4.7 %; Neutrophils # 5.02 10^3/uL (1.8-7.7); Neutrophils % 67.8 %; Nucleated Red Blood Cells % 0 %; Platelet Count 479 10^3/cmm (157-399); Red Blood Count 4.26 10^6/uL (3.85-5.65); Red Cell Distribution Width 12.5 % (12.1-15.1)
[2023-10-11 13:10] VITALS: BP 101/66; PULSE 82; RESP 16; O2SAT 96
[2023-10-11 13:22] LABS: Alanine Aminotransferase 11 U/L (0-33); Albumin Level 3.5 g/dL (3.5-5.2); Alkaline Phosphatase 114 U/L (35-105); Anion Gap 15.9 (5-19); Aspartate Amino Transferase 12 U/L (0-32); Blood Urea Nitrogen 13 mg/dL (6-20); Calcium 8.7 mg/dL (8.5-10.5); Carbon Dioxide 23 mmol/L (22-29); Chloride 102 mmol/L (98-107); Creatinine Clr Calc Pharmacy 141.2745; Globulin 4.3 g/dL (1.3-4.6); Glomerular Filtration Rate 113.8 mL/min (90-130); Glucose 88 mg/dL (65-115); Osmolality Calculated 284 mOsm/kg (285-295); Potassium 3.9 mmol/L (3.5-5.1); Sodium 137 mmol/L (136-145); Total Bilirubin 0.2 mg/dL (0.15-1.2); Total Protein 7.8 g/dL (6.6-8.7)
--- NOTE | 2023-10-11 13:40 | CT_ITS ---
WS: [id number] CT ABDOMEN PELVIS TECHNIQUE: Contrast-enhanced CT of the abdomen and pelvis with coronal and sagittal reformatted image s. CLINICAL INFORMATION: vaginal bleeding following hysterectomy COMPARISON: CT 10/09/2023 DLP: 786.[address] scans at [facility] use at least one of these dose optimization techniques: automated e xposure control; mA and/or kV adjustment per patient size (includes targeted exams where dose is matc hed to clinical indication); or iterative reconstruction. FINDINGS: Recent postoperative changes hysterectomy. Again seen is fluid and blood products in the vaginal cuff similar to 10/09/2023. Associated vaginal cuff distention appears improved today. Postoperative enhan cement in the pelvis and vaginal cuff. Small amount of free fluid in the pelvis. Normal sigmoid colon. Urine distended bladder. Normal renal parenchymal enhancement. No hydronephrosis in either kidney. Adrenal glands are normal. Diffuse fatt y infiltration of the liver. Normal portal vein and splenic vein. Lung bases are well aerated. Tiny f at-containing umbilical hernia. CT/CT abdomen pelvis w con* [id number] IMPRESSION: 1. Recent postoperative changes hysterectomy. 2. Again seen is fluid and blood products in the vaginal cuff with postoperati ve enhancement. This appears improved from previous with less distention of the vaginal cuff today. Findings are likely postoperative. Recommend follow-up mervin ging if concern for infection or continued bleeding. 3. Trace free fluid in the pelvis. 4. Diffuse fatty infiltration of the liver. 5. No other significant changes.
[2023-10-11] MEDS: iohexol 350 mg/mL 500 mL Btl (per mL) IV (14:29)
[2023-10-11 14:30] VITALS: BP 94/63; PULSE 72; RESP 16; O2SAT 95
[2023-10-11 15:00] VITALS: PULSE 73; RESP 16; O2SAT 95
[2023-10-11 15:33] VITALS: BP 96/66; PULSE 80; O2SAT 96
== END 2023-10-11 15:34 | disposition home or self-care (01) ==
PROVIDERS: Emergency Medicine; Emergency Provider Physician Assistant; PCP Family Medicine
DX: N99.820 Postprocedural hemorrhage of a genitourinary system organ or structure following a genitourinary system procedure (principal); Z87.891 Personal history of nicotine dependence; Z90.710 Acquired absence of both cervix and uterus
CPT/HCPCS: 36415; 74177; 80053; 81003; 81015; 85025; 87086; 99285; Q9967

== ENCOUNTER → 2024-11-08 16:29 | Outpatient (BNVA) | payer OTHER, BC, MEDICAID, SELFPAY | PROVIDERS: PCP Family Medicine; Visit Provider Nurse Practitioner Women's Health | DX: Z01.419 Encounter for gynecological examination (general) (routine) without abnormal findings (principal); Z11.3 Encounter for screening for infections with a predominantly sexual mode of transmission | CPT/HCPCS: 80053; 82306; 83036; 84443; 85025; 86592; 86705; 86706; 86709; 86803; 87340; 87806 ==